=== PATIENT | male | born 2000 | race Caucasian/White ===

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

== ENCOUNTER 2022-05-04 09:03 | Emergency (ER) | payer MEDICAID ==
[2022-05-04 09:29] VITALS: BP 131/91; PULSE 121
[2022-05-04] MEDS ORDERED: Diphtheria,Pertussis(Acell),Tetanus Vaccine 0.5 ML Syringe IM ONE (10:18)
[2022-05-04] MEDS ORDERED: Lidocaine 1% with EPINEPHrine 1:100,000 50 ML MDV SUBCUT STA (10:18)
[2022-05-04] MEDS ORDERED: Bacitracin Oint 1 GM U/D Packet TOP ONE (10:18)
[2022-05-04] MEDS ORDERED: LORazepam 2 MG/ML SDV IM ONE (10:42)
[2022-05-04] MEDS ORDERED: Ketorolac 30 MG/ML SDV IM ONE (10:42)
== END 2022-05-04 11:33 | disposition home or self-care (01) ==
LOC: JP.ED 09:03
DX: S61.411A Laceration without foreign body of right hand, initial encounter (principal); S61.511A Laceration without foreign body of right wrist, initial encounter; F17.210 Nicotine dependence, cigarettes, uncomplicated; Z23 Encounter for immunization; W22.8XXA Striking against or struck by other objects, initial encounter
CPT/HCPCS: 12002; 90471; 90715; 96374; 99282; J2060; 99283

== ENCOUNTER 2022-05-15 04:41 | Emergency (ER) | payer MEDICAID ==
[2022-05-15 04:59] VITALS: BP 124/67; PULSE 80
[2022-05-15] MEDS ORDERED: Lidocaine/Epineph/Tetracaine 3 ML Syringe TOP ONE (05:03)
[2022-05-15] MEDS ORDERED: Cephalexin 250 MG Cap PO ONE (05:13)
== END 2022-05-15 06:30 | disposition home or self-care (01) ==
LOC: JP.ED 04:41
DX: S51.811A Laceration without foreign body of right forearm, initial encounter (principal); S56.921A Laceration of unspecified muscles, fascia and tendons at forearm level, right arm, initial encounter; S66.921A Laceration of unspecified muscle, fascia and tendon at wrist and hand level, right hand, initial encounter; S61.501A Unspecified open wound of right wrist, initial encounter; W22.8XXA Striking against or struck by other objects, initial encounter
CPT/HCPCS: 12002; 99282; A9270

== ENCOUNTER 2024-08-08 07:24 | Emergency (ER) | payer MEDICAID, OTHER ==
[2024-08-08 08:12] VITALS: BP 126/76; PULSE 86
== END 2024-08-08 08:38 | disposition home or self-care (01) ==
LOC: JP.ED 07:24
DX: S90.32XA Contusion of left foot, initial encounter (principal); F17.210 Nicotine dependence, cigarettes, uncomplicated; W01.0XXA Fall on same level from slipping, tripping and stumbling without subsequent striking against object, initial encounter
CPT/HCPCS: 73630-26-LT; 73630-LT; 99283

== ENCOUNTER 2025-03-10 15:43 | Emergency (ER) | payer SELFPAY ==
[2025-03-10 15:51] VITALS: BP 142/74; PULSE 99
== END 2025-03-10 17:29 | disposition home or self-care (01) ==
LOC: JP.ED 15:43
DX: S00.83XA Contusion of other part of head, initial encounter (principal); Z88.1 Allergy status to other antibiotic agents; W22.8XXA Striking against or struck by other objects, initial encounter
CPT/HCPCS: 70486; 70486-26; 99282; 99283